=== PATIENT | female | born 1940 | race Caucasian/White ===

== ENCOUNTER 2020-02-03 06:57 | Emergency (ER) | payer OTHER, MEDICAID ==
[~2020-02-03] VITALS: Ht 167.6 cm; Wt 54.9 kg
--- NOTE | 2020-02-03 07:05 | NUR ---
FANNIE FROM [facility] FOR C/O LOW O2 SAT AND LOW BP AT THE FACILILTY. PT WAS ARRIVED W/ O2 VIA SIMPLE MASK. PT NON-VERBAL. AWAKE. AT THE BED SIDE. PT WAS PLACED ON O2 AT 2LPM VIA NC. SATTING 100%. PT IS HAVING AN IVLINE ON THE L HAND AND RECEIVING IVF. BP WNL. RECTAL TEMP 97.7. AFEBRILE. PT IS PLACED ON MONITOR.
--- NOTE | 2020-02-03 07:11 | NUR ---
CALLED FOR COVID
--- NOTE | 2020-02-03 07:26 | NUR ---
COVID SWAB SENT TO LAB
--- NOTE | 2020-02-03 07:26 | NUR ---
URINE COLLECTED AND SENT TO LAB
--- NOTE | 2020-02-03 07:26 | NUR ---
TELEPHONE RECORDER AT BEDSIDE FOR LABS.
[2020-02-03] MEDS ORDERED: IV NS 0.9% 1,000 ML BAG IV ONE (07:30)
[2020-02-03 07:43] LABS: BASOPHILS # (AUTO) 0.1 /CMM (0.0-0.2); BASOPHILS % (AUTO) 0.6 % (0.0-2.0); EOSINOPHILS % (AUTO) 4.2 % (0.0-6.0); HEMATOCRIT 33 % (33-45); HEMOGLOBIN 9.7 g/dL (11.5-14.8); LYMPHOCYTES # (AUTO) 3.8 /CMM (0.8-4.8); LYMPHOCYTES % (AUTO) 29.8 % (20.0-44.0); MEAN CORPUSCULAR HGB CONC 30 g/dl (31.0-36.0); MEAN CORPUSCULAR VOLUME 89 fL (82-100); MONOCYTES % (AUTO) 8.1 % (2.0-12.0); NEUTROPHILS # (AUTO) 7.3 /CMM (1.8-8.9); NEUTROPHILS % (AUTO) 57.3 % (43.0-81.0); PLATELET COUNT (AUTO) 243 /CMM (150-450); RED BLOOD CELL COUNT(AUTO) 3.67 MIL/uL (4.0-5.2); WHITE BLOOD COUNT (AUTO) 12.7 K/uL (4.3-11.0)
[2020-02-03 07:54] LABS: CARBON DIOXIDE 25 mmol/L (21-32); CREATININE 3.1 mg/dL (0.6-1.3); GLUCOSE 125 mg/dL (74-106); POTASSIUM 5.7 mmol/L (3.5-5.1)
[2020-02-03 07:55] LABS: APPEARANCE,URINE CLOUDY (CLEAR); BILIRUBIN,URINE NEGATIVE (NEGATIVE); BLOOD, URINE SMALL Ery/uL (NEGATIVE); COLOR,URINE YELLOW (YELLOW); KETONES,URINE NEGATIVE (NEGATIVE); LEUKOCYTE ESTERASE ,URINE LARGE (NEGATIVE); NITRITE, URINE POSITIVE (NEGATIVE); PH,URINE 5.5 (5.0-8.0); PROTEIN,URINE 100 mg/dl (NEGATIVE); UGLUCOSE NEGATIVE (NEGATIVE); UROBILINOGEN,URINE 0.2 EU/dL (0.2)
[2020-02-03 08:03] LABS: SODIUM SERUM 168 mmol/L (136-145)
--- NOTE | 2020-02-03 08:03 | NUR ---
CALLED [facility] [phone]
[2020-02-03 08:04] LABS: CHLORIDE 130 mmol/L (98-107); UREA NITROGEN, BLOOD 125 mg/dL (7-18)
[2020-02-03 08:07] LABS: ALANINE AMINOTRANSFERASE 58 U/L (12-78); ALBUMIN 2.6 g/dL (3.4-5.0); ALKALINE PHOSPHATASE 111 U/L (46-116); ASPARTATE AMINOTRANSFERASE 23 U/L (15-37); B-TYPE NATRIURETIC PEPTIDE 1055 PG/ML (0-125); BILIRUBIN,DIRECT 0.1 mg/dL (0.0-0.2); BILIRUBIN,TOTAL 0.1 mg/dL (0.2-1.0); TOTAL PROTEIN, SERUM 6.6 g/dL (6.4-8.2)
--- NOTE | 2020-02-03 08:10 | NUR ---
LAB CALLED [facility] MD MADE AWARE.
[2020-02-03 08:27] LABS: BACTERIA,URINE Many /HPF (None Seen); SQUAMOUS EPITHELIAL CELL,UR Few /HPF (None Seen); WBC,URINE TOO NUMEROUS TO COUN /HPF (0-3)
[2020-02-03] MEDS ORDERED: CEFTRIAXONE 1GM BAG (ER ONLY) 1 GM/50 ML PIGGYBACK IV ONE (08:30)
[2020-02-03] MEDS ORDERED: IV NS 0.9% 1,000 ML IV ONE (08:30)
--- NOTE | 2020-02-03 09:15 | NUR ---
TOOK OVER PT CARE
[2020-02-03] MEDS ORDERED: CEFTRIAXONE 1 G in IV D5W 50 ML IV ONE (09:30)
--- NOTE | 2020-02-03 09:52 | NUR ---
ACCEPTING MD IS PAIGE ELDORADO CALL [phone] FOR REPORT. [facility] WILL COME AT 1035 [facility]ORT.
--- NOTE | 2020-02-03 10:53 | NUR ---
REPORT GIVEN TO ARNIE REILLY AT [facility]
[2020-02-03 10:54] VITALS: BP 103/52
--- NOTE | 2020-02-03 10:55 | NUR ---
[facility] AT BEDSIDE FOR PT TRANSPORT TO [facility]. REPORT GIVEN TO AMBULANCE STAFF. NO DISTRESS NOTED
--- NOTE | 2020-02-03 11:13 | NUR ---
pt left on gurney with 2 ambulance staff. report given. pt is in stable condition. nad noted
--- NOTE | 2020-02-04 17:39 | NUR ---
CALL FROM ROBERT FROM LAB REGARDING BLOOD CULTURE RESULT, UNABLE TO PRINT RESULT, STILL PENDING
--- NOTE | 2020-02-04 18:28 | NUR ---
CALLED [facility] [phone] NEIL FAXED LAB TO [phone]. 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
== END 2020-02-03 11:18 | disposition short-term general hospital (02) ==
LOC: ER 06:57
DX: N39.0 Urinary tract infection, site not specified (principal); I95.9 Hypotension, unspecified; E87.0 Hyperosmolality and hypernatremia; F03.90 Unspecified dementia, unspecified severity, without behavioral disturbance, psychotic disturbance, mood disturbance, and anxiety; N17.9 Acute kidney failure, unspecified; J44.9 Chronic obstructive pulmonary disease, unspecified; Z20.828 Contact with and (suspected) exposure to other viral communicable diseases; Z86.73 Personal history of transient ischemic attack (TIA), and cerebral infarction without residual deficits; E11.9 Type 2 diabetes mellitus without complications
CPT/HCPCS: 36415; 71045; 80048; 80076; 81001; 83605; 83880; 84145; 84484; 85025; 85730; 87040 ×2; 87077 ×2; 87086; 87186; 87426; 93005; 96361; 96365; 99291; J0696; J7030; J7060; 81000-TC

== ENCOUNTER 2022-01-24 20:01 | Emergency (ER) | payer OTHER ==
[~2022-01-24] VITALS: Ht 162.6 cm; Wt 49.4 kg
--- NOTE | 2022-01-24 20:20 | NUR ---
ISIDORO FROM [facility] C/O UNWITNESSED GLF, SUPERFICIAL LAC TO LEFT EYEBROW. PT AWAKE AND ALERT X1 BASELINE MENTATIONS. MD WAS AT BEDSIDE FOR EVAL AND ALL V/S WNL.
--- NOTE | 2022-01-24 20:29 | NUR ---
PT RETURNED TO ER BED [address]
[2022-01-24 20:42] VITALS: BP 133/70
--- NOTE | 2022-01-24 20:53 | NUR ---
[facility] PAGED PER DR PALACIOS.
--- NOTE | 2022-01-24 21:09 | NUR ---
KYLE NICHOLS [facility] WILL CALL BACK FOR UPDATE ON TRANSPORTATION & ETA TO D/C PT TO [facility]
--- NOTE | 2022-01-24 21:19 | NUR ---
[facility] ETA PICKUP TIME [phone] PER KYLE SHERWOODP
--- NOTE | 2022-01-24 21:26 | NUR ---
REPORT GIVEN TO EVELIN AT [facility]
--- NOTE | 2022-01-24 21:56 | NUR ---
PT PICKED UP BY [facility] UNIT [facility] BLS FOR TRANPORT BACK TO FACILITY
== END 2022-01-24 22:19 | disposition home or self-care (01) ==
LOC: ER 20:12
DX: S01.112A Laceration without foreign body of left eyelid and periocular area, initial encounter (principal); I10 Essential (primary) hypertension; E78.5 Hyperlipidemia, unspecified; J44.9 Chronic obstructive pulmonary disease, unspecified; E11.9 Type 2 diabetes mellitus without complications; E03.9 Hypothyroidism, unspecified; Z86.69 Personal history of other diseases of the nervous system and sense organs; Z85.038 Personal history of other malignant neoplasm of large intestine; Z87.39 Personal history of other diseases of the musculoskeletal system and connective tissue; Z88.8 Allergy status to other drugs, medicaments and biological substances; W18.30XA Fall on same level, unspecified, initial encounter; Y93.89 Activity, other specified; Y92.099 Unspecified place in other non-institutional residence as the place of occurrence of the external cause; Y99.8 Other external cause status
CPT/HCPCS: 70450-TC

== ENCOUNTER 2024-07-18 21:46 | Emergency (ER) | payer OTHER, MEDICAID ==
[~2024-07-18] VITALS: Ht 165.1 cm; Wt 59.0 kg
[2024-07-18 21:48] VITALS: TEMP 97.8
[2024-07-18] MEDS ORDERED: ONDANSETRON HCL/PF 4 MG/2 ML VIAL ONE (22:29)
[2024-07-18] MEDS: IV NS 0.9% 1,000 ML BAG IV ONE ×2 (22:46→23:26)
[2024-07-18] MEDS: ONDANSETRON HCL/PF 4 MG/2 ML VIAL IVP ONE (22:46)
[2024-07-18 22:54] LABS: BASOPHILS # (AUTO) 0.1 K/uL (0.0-0.2); BASOPHILS % (AUTO) 0.5 % (0.0-2.0); HEMATOCRIT 38 % (33-45); HEMOGLOBIN 11.9 g/dL (11.5-14.8); LYMPHOCYTES # (AUTO) 2.5 K/uL (0.8-4.8); LYMPHOCYTES % (AUTO) 11.3 % (20.0-44.0); MEAN CORPUSCULAR HEMOGLOBIN 25 PG (26.0-33.0); MEAN CORPUSCULAR HGB CONC 31 g/dl (31.0-36.0); MEAN CORPUSCULAR VOLUME 81 fL (82-100); MONOCYTES # (AUTO) 1.2 K/uL (0.1-1.30); MONOCYTES % (AUTO) 5.3 % (2.0-12.0); NEUTROPHILS # (AUTO) 18.3 K/uL (1.8-8.9); NEUTROPHILS % (AUTO) 82.9 % (43.0-81.0); PLATELET COUNT (AUTO) 472 K/uL (150-450); RED BLOOD CELL COUNT(AUTO) 4.74 MIL/uL (4.0-5.2); RED CELL DISTRIBUTION WIDTH 18.2 % (11.5-15.0); WHITE BLOOD COUNT (AUTO) 22.1 K/uL (4.3-11.0)
[2024-07-18 22:58] LABS: CARBON DIOXIDE 26 mmol/L (21-32); CHLORIDE 110 mmol/L (98-107); CREATININE 2.1 mg/dL (0.6-1.3); POTASSIUM 4.3 mmol/L (3.5-5.1); SODIUM SERUM 148 mmol/L (136-145); UREA NITROGEN, BLOOD 54 mg/dL (7-18)
[2024-07-18 23:01] LABS: ALANINE AMINOTRANSFERASE 24 U/L (12-78); ALBUMIN 2.4 g/dL (3.4-5.0); ALKALINE PHOSPHATASE 135 U/L (46-116); ASPARTATE AMINOTRANSFERASE 16 U/L (15-37); BILIRUBIN,DIRECT 0.1 mg/dL (0.0-0.2); BILIRUBIN,TOTAL 0.2 mg/dL (0.2-1.0); GLUCOSE 527 mg/dL (74-106); LIPASE 54 U/L (16-77); TOTAL PROTEIN, SERUM 7.7 g/dL (6.4-8.2)
[2024-07-18 23:53] LABS: APPEARANCE,URINE CLOUDY (CLEAR); BILIRUBIN,URINE NEGATIVE (NEGATIVE); BLOOD, URINE 1+ Ery/uL (NEGATIVE); COLOR,URINE YELLOW (YELLOW); KETONES,URINE NEGATIVE (NEGATIVE); LEUKOCYTE ESTERASE ,URINE 2+ (NEGATIVE); NITRITE, URINE NEGATIVE (NEGATIVE); PH,URINE 6.5 (5.0-8.0); PROTEIN,URINE 2+ mg/dl (NEGATIVE); UGLUCOSE 3+ mg/dL (NEGATIVE); UROBILINOGEN,URINE 0.2 EU/dL (0.2)
[2024-07-19 00:15] LABS: ADD URINE CULTURE YES; BACTERIA,URINE Many /HPF (None Seen); SQUAMOUS EPITHELIAL CELL,UR Few /HPF (None Seen); WBC,URINE 51-80 /HPF (0-3); YEAST,URINE Rare /HPF (None Seen)
[2024-07-19] MEDS ORDERED: CEFTRIAXONE 1GM BAG (ER ONLY) 50 ML IV ONE (00:32)
[2024-07-19] MEDS: CEFTRIAXONE 1GM BAG (ER ONLY) 1 GM/50 ML PIGGYBACK IV ONE (00:43)
[2024-07-19 01:34] LABS: LACTIC ACID 2.5 mmol/L (0.4-2.0)
[2024-07-19 05:14] VITALS: BP 156/101; O2SAT 97
== END 2024-07-19 07:16 | disposition short-term general hospital (02) ==
LOC: ER 21:51
DX: E11.65 Type 2 diabetes mellitus with hyperglycemia (principal); N39.0 Urinary tract infection, site not specified; N17.9 Acute kidney failure, unspecified; E86.0 Dehydration; I10 Essential (primary) hypertension; E03.9 Hypothyroidism, unspecified; E78.5 Hyperlipidemia, unspecified; F03.90 Unspecified dementia, unspecified severity, without behavioral disturbance, psychotic disturbance, mood disturbance, and anxiety; J44.9 Chronic obstructive pulmonary disease, unspecified; M81.0 Age-related osteoporosis without current pathological fracture; Z85.038 Personal history of other malignant neoplasm of large intestine; Z86.73 Personal history of transient ischemic attack (TIA), and cerebral infarction without residual deficits; Z20.822 Contact with and (suspected) exposure to COVID-19
CPT/HCPCS: 99285; 96361; 71045; 96375; 93005; 85025; 80048; 87086; 83690; 80076; 81001; 36415 ×2; 82962; 96365; 87426; 83605 ×2; J2405; J7030; J0696